=== PATIENT | male | born 1945 | race Caucasian/White ===

== ENCOUNTER 2023-12-15 11:29 | Emergency (ER) | payer OTHER ==
[~2023-12-15] VITALS: Ht 185.4 cm; Wt 140.6 kg
[2023-12-15] MEDS ORDERED: TAMSULOSIN HCL0.4 MG PO (11:44)
[2023-12-15] MEDS ORDERED: LOPRESSOR25 MG PO (11:56)
[2023-12-15] MEDS ORDERED: ELIQUIS5 M1 PO (11:56)
[2023-12-15] MEDS ORDERED: CHLORTHALIDONE25 MG PO (11:58)
[2023-12-15] MEDS ORDERED: LIPITOR10 MG PO (11:59)
[2023-12-15] MEDS ORDERED: RINVOQ ER15 MG PO (12:00)
[2023-12-15] MEDS ORDERED: IRON325 M3 PO (12:04)
[2023-12-15] MEDS ORDERED: VITAMIN D3125 MC1 PO (12:05)
[2023-12-15] MEDS ORDERED: B12 ACTIVE1000 MCG PO (12:05)
[2023-12-15 12:12] LABS: BASO % 0.3 % (0.0-1.0); EOS % 0.5 % (1.0-4.0); HEMATOCRIT 49.1 % (42.0-52.0); LYMPH # 1.5 10*3/uL (1.3-4.4); LYMPH % 19.6 % (27.0-41.0); MEAN CELL VOLUME 91.3 fl (80.0-94.0); MEAN CORPUSCULAR HGB 30.1 pg (27.0-31.0); MEAN PLATELET VOLUME 10.7 fl (9.6-12.3); MONO # 0.7 10*3/uL (0.1-1.0); MONO % 9.6 % (3.0-9.0); NEUT # 5.3 10*3/uL (2.3-7.9); NEUT % 69.6 % (47.0-73.0); PLATELET COUNT AUTOMATED 200 10*3/uL (130-400); RED BLOOD COUNT 5.38 10*6/uL (4.50-5.90); RED CELL DISTRI WIDTH 13.2 % (0-14.5); WHITE BLOOD COUNT 7.6 10*3/uL (4.8-10.8)
[2023-12-15 12:23] LABS: ACT PARTIAL THROMBO TIME 30.1 SECONDS (20.0-32.1)
[2023-12-15 12:32] LABS: BILIRUBIN Negative (Negative); BLOOD Negative (Negative); CLARITY Clear (Clear); COLOR Yellow (Yellow); GLUCOSE Negative (Negative); KETONE Negative (Negative); LEUKO ESTERASE Negative (Negative); NITRITE Negative (Negative); SPECIFIC GRAVITY 1.015 (1.001-1.030); UROBILINOGEN 0.2 E.U./dl (0.0-1.0)
[2023-12-15 12:33] LABS: ALKALINE PHOSPHATASE 61 U/L (46-116); BUN 14 mg/dl (9-23); CHLORIDE 104 mmol/L (98-107); LIPASE 25 U/L (12-53); POTASSIUM 3.7 mmol/L (3.4-5.1); SGPT/ALT 32 U/L (5-49); TOTAL PROTEIN 6.5 gm/dL (6.0-8.0)
[2023-12-15 13:02] LABS: BACTERIA 1+
[2023-12-15] MEDS ORDERED: FUROSEMIDE 40 MG/4 ML VIAL IV ONE (13:05)
== END 2023-12-16 00:06 | disposition short-term general hospital (02) ==
LOC: ED 11:29
PROVIDERS: Internal Medicine
DX: I44.2 Atrioventricular block, complete (principal); R60.0 Localized edema; I10 Essential (primary) hypertension; I48.91 Unspecified atrial fibrillation; E78.5 Hyperlipidemia, unspecified